=== PATIENT | female | born 1970 | race Caucasian/White ===

== ENCOUNTER → 2020-06-01 11:43 | Outpatient (BNVA) | payer MEDICAID, SELFPAY | PROVIDERS: Visit Provider Nurse Practitioner ==

== ENCOUNTER → 2020-06-27 08:50 | Outpatient (BNVA) | payer MEDICAID, SELFPAY | PROVIDERS: PCP Nurse Practitioner Family; Visit Provider Nurse Practitioner ==

== ENCOUNTER → 2020-08-08 08:56 | Outpatient (BNVA) | payer MEDICAID, SELFPAY | PROVIDERS: PCP Nurse Practitioner Family; Visit Provider Nurse Practitioner ==

== ENCOUNTER → 2020-10-01 11:22 | Outpatient (BNVA) | payer MEDICAID, SELFPAY | PROVIDERS: PCP Nurse Practitioner Family; Visit Provider Nurse Practitioner ==

== ENCOUNTER 2020-11-22 14:40 | Emergency (ER) | payer MEDICAID, SELFPAY ==
[2020-11-22 14:45] VITALS: BP 147/104; PULSE 104; RESP 16; TEMP 36.7; O2SAT 99; BMI 21.5
== END 2020-11-22 16:48 | disposition left against medical advice (07) ==
PROVIDERS: Emergency Provider Emergency Medicine; PCP Nurse Practitioner Family
DX: M79.89 Other specified soft tissue disorders (principal); M79.651 Pain in right thigh
CPT/HCPCS: 99281

== ENCOUNTER 2022-03-09 16:51 | Emergency (ER) | payer MEDICAID, SELFPAY ==
--- NOTE | ~2022-03-09 | XR_ITS ---
EXAMINATION: XR chest 1V CLINICAL INFORMATION: Reason for Exam Chest pain status post chest compressions COMPARISON: Chest radiograph 06/28/2010 TECHNIQUE: One view of the chest FINDINGS: Asymmetric opacification of the right lung apex. No pneumothorax or pleural effusion. Normal cardiomediastinal silhouette. No displaced rib fractures appreciated however ribs were incompletely imaged and radiographs have limited sensitivity for the detection of rib fractures, and therefore if clinical concern CT chest is advised. XR/XR chest 1V Impression: 1. Asymmetric opacification of the right lung apex, could potentially reflect vasculature in the setting of patient rotation however a contrast-enhanced CT chest is recommended to ensure no underlying lesion. 2. No displaced rib fractures appreciated however ribs were incompletely imaged and radiographs have limited sensitivity for the detection of rib fractures, and therefore if clinical concern CT chest is advised.
[2022-03-09 17:01] VITALS: BP 143/93; PULSE 107; PULSE 115; RESP 16; TEMP 36.6; O2SAT 94; O2SAT 95; BMI 21.5
--- NOTE | 2022-03-09 17:05 | ED_ITS ---
HPI - Overdose General Chief Complaint: Overdose Stated Complaint: OD Time Seen by Provider: 03/09/22 16:55 Source: patient and EMS Mode of arrival: EMS Limitations: no limitations History of Present Illness HPI Narrative: 51-year-old female presents via EMS for accidental overdose. Patient was given chest compressions by bystanders, EMS provided bag-mask ventilation and Narcan. Patient is alert and oriented at the time of presentation to the emergency department. complaint: accidental overdose Onset (ago): hour(s) (Within the hour of arrival) Context: Accidental Overdose: wanted to get high Treatments Prior to Arrival: narcan and other (Bag-mask ventilation, chest compressions) Related Data Home Medications Medication Instructions Recorded Confirmed linaclotide 290 mcg capsule 290 mcg PO DAILY 06/27/20 11/01/20 (Linzess) lorazepam 0.5 mg tablet 0.5 mg PO BID PRN Anxiety 06/27/20 11/01/20 trazodone 100 mg tablet 100 mg PO BEDTIME PRN Sleep 06/27/20 11/01/20 Previous Rx's Medication Instructions Recorded cetirizine 10 mg capsule (All Day 10 mg PO DAILY allergy symptoms 30 06/08/20 Allergy (cetirizine)) days #30 caps fluticasone propionate 220 See Rx Instructions .Route BID #12 10/01/20 mcg/actuation HFA aerosol inhaler grams Allergies Allergy/AdvReac Type Severity Reaction Status Date / Time Beef Containing Products Allergy mild Verified 11/01/20 13:12 fish derived Allergy mild Verified 11/01/20 13:12 wheat Allergy Unknown Verified 11/06/20 12:34 eggs Allergy mild Uncoded 11/01/20 13:12 Review of Systems Review of Systems: Constitutional: No Fever, No Chills ENT/Mouth: No Ear Pain, No Hoarseness, No sore throat Eyes: No Eye Pain, No Swelling, No Redness, No Foreign Body Cardiovascular: No Chest Pain, No SOB Respiratory: No Cough, No Dyspnea Gastrointestinal: No Nausea, No Vomiting, No Diarrhea, No abdominal Pain Genitourinary: No Dysuria, No Hematuria Musculoskeletal: positive chest wall pain, No Myalgias, No Joint Swelling Skin: No Skin lacerations, No rash Neuro: No Weakness, No Numbness, No Paresthesias, No Loss of Consciousness, No Dizziness, No Headache Psych: Positive substance abuse, No Anxiety/Panic, No Depression Heme/Lymph: no easy bruising, no Lymphadenopathy Endocrine: No Polyuria, No Polydipsia Yes all other systems are reviewed and are negative [facility] Past Medical History Attestation statement: The following information was validated with the patient. Source: old records reviewed Medical History Anemia Anxiety Dysphagia Eosinophilic esophagitis ETOH abuse History of irritable bowel syndrome Surgical History History of esophagogastroduodenoscopy Hx of colonoscopy [place] teeth extracted Family History Family History Father Colon cancer Mother No problems noted. Social History Social History Household Members: Spouse Alcohol intake: current Alcohol intake frequency: a few times a week Alcohol type: wine Advance Directives: No Advance Directives Information Provided: No Physical Exam Vital Signs: Vital Signs: Last Vital Signs Temp 97.9 F 03/09/22 21:30 Pulse 96 03/09/22 21:30 Resp 16 03/09/22 21:30 BP 139/76 03/09/22 21:30 Pulse Ox 96 03/09/22 21:30 O2 Del Method 03/09/22 21:30 O2 Flow Rate 2 03/09/22 17:11 BMI result Body Mass Index 21.5 Appearance: Alert. Oriented X3. Moderate distress. Disheveled. Eyes: Pupils equal, round and reactive to light. EOMI. Sclera nonicteric. ENT: Pharynx normal. Moist mucous membranes. Neck: Normal inspection. Neck supple. No nuchal rigidity. No vertebral tenderness. CVS: Normal heart rate and rhythm. Apical pulse with the pulses to extremities. Chest wall tenderness to palpation. Respiratory: No respiratory distress. Breath sounds normal. Abdomen: Soft and nontender. No abdominal bruising, rigidity, or rebound tenderness. Skin: Skin warm and dry. Normal skin color. Normal skin turgor. Extremities: No lower extremity edema. Moves all extremities against resistance. Gait not assessed for safety. Neuro: No motor deficit. No sensory deficit. Cranial nerves 2-12 intact. Course Course Course Narrative: 51-year-old female presents via EMS for overdose. Bystanders performed chest compressions, EMS provided bag-mask ventilation and provided Narcan. Once patient received Narcan she was able to maintain O2 saturation in the mid to low 90s. Patient states that she thought she was using cocaine, however it must have been mixed with fentanyl. Patient does not report opioid abuse in the past. States that she has not used cocaine in over 20 years. Does not give me a reason why she used today. She is not interested in detox. She is not forthcoming with information, and answering in short and samreen sentences. Patient is able to follow directions, O2 sats between 88-94%, will continue to monitor with O2 nasal cannula, will order chest x-ray and EKG. 18:25 x-rays indicate an irregular opacity and recommend CT scan for further imaging. I did discuss this finding with the patient, she does not want to agree to this plan until she speaks to her boyfriend on the phone. 20:[address] scan. She is alert oriented x4. Answering questions appropriately. Ambulatory with an even steady gait. Plan of care is to discharge home. Again, respectfully declines detox. Patient verbalized understanding of and agrees for discharge home. MDM - Overdose Differential Diagnosis Differential diagnosis: Likely cocaine intoxication, drug overdose and accidental drug ingestion Medical Records Attestation: I reviewed the patient's medical records. Imaging Data Chest x-ray: Attestation: I personally reviewed and interpreted this imaging study as follows: Radiologist's impression: EXAMINATION: XR chest 1V CLINICAL INFORMATION: Reason for Exam Chest pain status post chest compressions COMPARISON: Chest radiograph? 06/28/2010 TECHNIQUE: One view of the chest FINDINGS: Asymmetric opacification of the right lung apex. No pneumothorax or pleural effusion. Normal cardiomediastinal silhouette. No displaced rib fractures appreciated however ribs were incompletely imaged and radiographs have limited sensitivity for the detection of rib fractures, and therefore if clinical concern CT chest is advised. XR/XR chest 1V Impression: 1.? Asymmetric opacification of the right lung apex, could potentially reflect vasculature in the setting of patient rotation however a contrast-enhanced CT chest is recommended to ensure no underlying lesion. 2.? No displaced rib fractures appreciated however ribs were incompletely imaged and radiographs have limited sensitivity for the detection of rib fractures, and therefore if clinical concern CT chest is advised. ? ECG Data Attestation: I personally reviewed and interpreted this ECG as follows: ECG interpretation date: 03/09/22 ECG interpretation time: 18:14 Prior ECG tracings: not available for review Interpretation: Vent. rate 105 BPM VA interval 150 ms QRS duration 92 ms QT/QTc 376/496 ms P-R-T axes 49 18 40 Sinus tachycardia Possible Left atrial enlargement Cannot rule out Inferior infarct , age undetermined Abnormal ECG No previous ECGs avail Discharge Plan Discharge Clinical Impression: Drug overdose Patient Disposition: Home, Self-Care Instructions: Adult Overdose (ED) Additional Instructions: You were evaluated for overdose. You required chest compressions, bag-mask ventilation and Narcan. Please consider detox Thank you for choosing this emergency department for evaluation. Please follow-up with primary care physician as needed. Return to the emergency department for any new, concerning, or worsening symptoms. Prescriptions: No Action All Day Allergy (cetirizine) 10 mg capsule 10 mg PO DAILY 30 Days Qty: 30 3RF fluticasone propionate 220 mcg/actuation HFA aerosol inhaler See Rx Instructions .ROUTE BID Qty: 12 3RF Rx Instructions: swallowed please spray 2 puffs in mouth and swallow, rinse mouth afterwards. 2 times a day; lorazepam 0.5 mg tablet 0.5 mg PO BID PRN (Reason: Anxiety) trazodone 100 mg tablet 100 mg PO BEDTIME PRN (Reason: Sleep) Linzess 290 mcg capsule 290 mcg PO DAILY Interventions: ED Discharge Assessment Last Done: 03/09/22 21:31 Discharge Date/Time: 03/09/22 21:32
--- NOTE | 2022-03-09 17:10 | ECG_ITS ---
Test Reason : overdose Blood Pressure : / mmHG Vent. Rate : 105 BPM Atrial Rate : 105 BPM P-R Int : 150 ms QRS Dur : 092 ms QT Int : 376 ms P-R-T Axes : 049 018 040 degrees QTc Int : 496 ms Sinus tachycardia Possible Left atrial enlargement RSR' or QR pattern in V1 suggests right ventricular conduction delay Nonspecific T wave abnormality Inferior leads Abnormal ECG No previous ECGs available Referred By: Camille Gibson Electronically Signed By:CAROL LA MD
[2022-03-09 17:11] VITALS: PULSE 103; RESP 16; O2SAT 96
--- NOTE | 2022-03-09 17:34 | MHC.RECOVSUP ---
? Reason for consult Recovery Support o Current location: ED11 o Identified substance use concern: Cocaine - Overdose - Support ? Intervention: o Community resources provided o Harm reduction discussion ? Plan: <del>o</del> <del>Referral</del> <del>to</del> <del>[facility]</del> <del>o</del> <del>Bed</del> <del>search</del> <del>in</del> <del>progress</del> <del>to</del> <del>o</del> <del>Follow</del> <del>up</del> <del>tomorrow</del> <del>o</del> <del>Patient</del> <del>awaiting</del> <del>crisis</del> <del>evaluation</del> <del>o</del> <del>Patient</del> <del>to</del> <del>follow</del> <del>up</del> <del>with</del> <del>[facility]</del> <del>after</del> <del>discharge</del> ? Additional information: Met with Patient and we talk recovery.. Patient stated that She cant right now.. Patient main concern at the moment is there phone
[2022-03-09 21:30] VITALS: BP 139/76; PULSE 96; RESP 16; TEMP 36.6; O2SAT 96
== END 2022-03-09 21:32 | disposition home or self-care (01) ==
PROVIDERS: Emergency Provider Emergency Medicine Emergency Medical Services
DX: T50.901A Poisoning by unspecified drugs, medicaments and biological substances, accidental (unintentional), initial encounter (principal); Y92.9 Unspecified place or not applicable; F19.10 Other psychoactive substance abuse, uncomplicated; R07.89 Other chest pain
CPT/HCPCS: 71045; 93005; 99283; 99284

== ENCOUNTER 2022-05-21 12:52 | Outpatient (REF) | payer MEDICAID, SELFPAY ==
--- NOTE | ~2022-05-21 | MM_ITS ---
EXAMINATION: MM SCREENING DIGITAL BREAST TOMOSYNTHESIS, BILATERAL CLINICAL INFORMATION: Screening. Asymptomatic. The lifetime risk of breast cancer based on the Tyrer-Cuzick Model is 10.7%. COMPARISON: Mammography: December 24, 2017 and studies dating back to August 19, 2013 TECHNIQUE: Digital breast tomosynthesis is performed in both the craniocaudal and mediolateral oblique views along with computer-aided detection (CAD). Synthesized 2D images are generated from the tomosynthesis. FINDINGS: The breasts are heterogeneously dense, which may obscure small masses (ACR BI-RADS breast composition Category c). There are no new significant masses, abnormal calcifications, or other abnormalities. MM/MM tomosynthesis screening BI IMPRESSION: No significant changes ASSESSMENT: BI-RADS 1: Negative RECOMMENDATION: Routine annual mammography screening. This patient's information was entered into a reminder system with a target due date for their next mammogram.
== END 2022-05-21 12:53 | disposition home or self-care (01) ==
LOC: HO.MAMMO 12:52
PROVIDERS: PCP Nurse Practitioner Family; Visit Provider Nurse Practitioner Family
DX: Z12.31 Encounter for screening mammogram for malignant neoplasm of breast (principal)
CPT/HCPCS: 77063; 77067

== ENCOUNTER 2023-08-12 12:00 | Outpatient (AMB) | payer MEDICAID, SELFPAY ==
--- NOTE | 2023-08-12 12:10 | A.OFFVIS_ITS ---
Intake Vital Signs 08/12/23 12:35 Height 5 ft 2 in Weight 110 lb BMI 20.1 BP 97/59 L Blood Pressure Location Lt brachial Position Sitting Pulse 89 Intake Visit Reasons: Dysphagia PT N/S last appt Intake Note: Akua presents to in office visit today in follow up of dysphagia. CC: hemorrhoid with blood, abdominal pain with abdominal bloating, swallowing problems, denies any other GI issues. Steamship Agent Required: No Accompanied by: Family/Other Allergies No Known Drug Allergies Allergy (Unknown, Verified 08/12/23 13:34) Unknown Beef Containing Products Allergy (Verified 08/12/23 13:34) mild fish derived Allergy (Verified 08/12/23 13:34) mild wheat Allergy (Verified 08/12/23 13:34) Unknown eggs Allergy (Uncoded 11/01/20 13:12) mild HPI Dysphagia PT N/S last appt HPI Details Assessment & Plan (1) Eosinophilic esophagitis: Code(s): K20.0 - Eosinophilic esophagitis Plan - [place] SnowdenC: She tells me that she saw the laborer sawmill and she is allergic to multiple food items. This includes wheat, beef, salmon and ?mixed to fish? I have no idea what mixed finishes but I will see if I can find out the laborer sawmill did not note either. She is not allergic to shellfish. She is trying to avoid these but of course it is hard especially the wheat since pasta and bread her fairly ubiquitous in the [place] diet. However she understands that there is nothing much to be done since this is a genetic trait and she is working hard to change her diet and lifestyle. There also was a mention of significant alcohol intake by the laborer sawmill that may be a contributing factor to her esophagitis. She still has intermittent trouble with swallowing even water sometimes will ?get stuck and will come back up.? She had an esophageal dilation with the last EGD and I explained that sometimes we need to dilate again to keep the stricture open. She is slightly disappointed because the last time we dilated she was very uncomfortable and felt like she ?was swallowing broken glass,? for about a week. I think this is because at that time we did not have a good diagnosis and her esophagus was still very irritated. I want to aggressively use the fluticasone inhaler 2 weeks before the procedure to calm everything down her esophagus and I do not think she will have so much discomfort this time since were actively treating the a eosinophilic esophagitis. She still vomits occasionally which she attributes to esophageal stricture more than an actual nausea/vomiting syndrome. She continues to use the Linzess and is moving her bowels well with this. She is agreeable to a follow-up after the procedure and will call me if she needs anything in the meantime. Medications: Refilled: fluticasone propio saurabh 220 mcg/actua tion swallowed please spray 2 puffs in m outh and swallow, rinse mouth afterw ards. 2 times a da y; 12 grams 3RF (2) Dysphagia: Code(s): R13.10 - Dysphagia, unspecified Medications: Refilled: fluticasone propio saurabh 220 mcg/actua tion swallowed please spray 2 puffs in m outh and swallow, rinse mouth afterw ards. 2 times a da y; 12 grams 3RF (3) Family history of colon cancer: Comment: 2018 scope, repeat 5 years 2022 Code(s): Z80.0 - Family history of malignant neoplasm of digestive organs TODAY'S VISIT PATIENT HAS BEEN LOST FOLLOW-UP SINCE 09/2020 This is a 53-year-old female who was booked as a follow-up for dysphagia on my schedule but when I enter the room she has a bit upset saying ?you did not get any paperwork? You really do not know why I am here?? I tell her that I thought she was here for her swallowing again and she stands up and shows me by lifting her close her extremely swollen abdomen and says ?and I am not !? It seems that she was admitted in June at [facility] for sudden decompensation of chronic liver disease. I ask how she got to this point and she tells me ?from drinking alcohol. ? I clearly did not treat her for this and did not even know that she was an alcoholic. However, I do have some access to [facility] medical records and I use these to try to clean information going forward. Apparently she was referred to follow-up with the [facility] medical practitioner but she says ?they never called me. ? She knew she was having trouble for many months when she had an onset of severe fatigue and then she began to have abdominal swelling. At that time she had both a therapeutic and diagnostic paracentesis that did not seem to show any infection or malignant process. At that time they removed 2.9 L of fluid. She was put on a cephalosporin for prevention of spontaneous bacterial peritonitis. However, the fluid rapidly returned within a week of the procedure. She is now extremely uncomfortable and is complaining of pain in her lower belly in her flanks and in her back. She wants a refill of her chronic oxycodone which I declined to do today given the overall risks for relapse in a recently recovered alcoholic when mixed with opiate medications. However, I will try aggressively increasing her diuretics and try to get her in for therapeutic paracentesis at our facility as quickly as I can. Reviewing all of her labs it appears that her MELD score is 22 in she has a fairly good chance of survival within the next 90 days. She has been sober since May of this year. She does not know her medications but we call her pharmacy and appears she is on 50 mg of spironolactone a day along with 40 of Lasix. She does not appear to be on any beta timi. I tell her that unfortunately given the fact I was not appropriately informed about her visit (her primary care provider also did not forward us any information) I will need to hand her off to a physician for very close follow-up especially with the aggressive diuretic therapy. This is especially true because I go on vacation after this week were ordinarily I would follow the patient on a week to week basis or even more than that until we stabilize the presentation. For now we agree that she will start her diuretic therapy today which is Thursday and then return Thursday morning for repeat labs so that I can assess her electrolyte and her renal function. I have been able to get her in with Dr. Morales next Thursday which is likely appropriate given her sudden decompensation and the overall severity of her condition going forward. Before the end of the day and before I close this note I discovered that were able to get her scheduled for paracentesis on Thursday of next week. At this time I am going to increase by double her diuretics putting her on 50 of spironolactone twice a day and 40 of Lasix twice a day to try to get her some relief as she has an extremely tense abdomen. I am also going to start a very low dose of metoprolol 12.5 mg half of a 25 mg tablet short-acting twice a day. I do this in case she does have any orthostatic hypotension from this aggressive therapy we can always cut this down to once a day and stop it more quickly rather than putting her on a long-acting beta timi. We can always revise this going forward. She was educated to be very careful about rising quickly from a sitting position or bending over and standing up. If she has any ill effect she is to contact me immediately. She also was educated about the critical importance of coming back to have her electrolytes rechecked as a potassium imbalance or even a sodium imbalance could cause fatal cardiac abnormalities. I am also going to be ordering an endoscopy to evaluate for her esophageal varices but this of course is not of urgent concern. I have scanned all of the labs and imaging studies obtained from [facility] so that they are part of our record. Of note she does not seem to have an elevated ammonia level. CT scan of the abdomen does show a cirrhotic liver with a possible hyper enhancing focus adjacent to the inferior vena cava that they can not completely to find as a vascular structure. This may need further imaging studies. She also has mild splenomegaly. Return office visit next Thursday as scheduled for physician follow-up. I will check her labs on Thursday and make any decision/adjustments to the aggressive diuretic therapy as needed. Of incidental note she may be due for a repeat screening colonoscopy and we can consider going forward if this should be added to the upper endoscopy. [facility] Medical History (Updated 08/14/23 @ 07:52 by KAYLA Snowden) Anemia History of irritable bowel syndrome Anxiety Dysphagia Eosinophilic esophagitis Surgical History [place] teeth extracted History of esophagogastroduodenoscopy Hx of colonoscopy Family History Father Colon cancer Mother No problems noted. Social History Household Members: Spouse Alcohol intake: current Alcohol intake frequency: a few times a week Alcohol type: wine Review of Systems Const Denies fatigue, Denies fever(s), Denies night sweats, Denies poor appetite and Denies weight loss ENT Reports Normal hearing present, Denies dysphagia, Denies odynophagia, Denies throat swelling and Denies tongue swelling Card Reports no additional complaints Resp Reports no additional complaints GI Details: Reports abdominal pain, Denies melena, Denies bloating, Denies hematochezia, Denies constipation, Denies GI cramping, Denies dysphagia, Denies excessive flatus, Denies early satiety, Denies heartburn, Denies diarrhea, Denies nausea, Denies odynophagia, Denies vomiting, Denies hematemesis and Reports other (Marked in severe ascites) Skin/Breast Denies pruritus, Denies lesions, Denies rash and Denies jaundice Neuro Reports Normal hearing present and Denies Abnormal speech present Psych Reports anxiety Endo Denies fatigue Aller/Immun Denies throat swelling and Denies tongue swelling Physical Exam Vital Signs: Last Vital Signs Pulse 89 08/12/23 12:35 BP 97/59 L 08/12/23 12:35 BMI result Body Mass Index 20.1 Const General: cooperative, no acute distress, well developed and well groomed Nutritional Appearance: average body habitus and well nourished Orientation/consciousness: oriented to person, oriented to place and oriented to time Limitations: No language barrier HEENT Head: Yes normocephalic and Yes atraumatic Eyes General: appearance normal, both eyes and all related structures Pupils: Equal, round and reactive pupils present Neck Thyroid: Thyroid normal Resp Effort & Inspection: normal respiratory effort and able to speak in complete sentences Auscultation: clear to auscultation bilaterally Cardio Rate: regular rate Rhythm: regular rhythm Heart sounds: Normal, physiologic split S2 sound present Peripheral pulses: radial pulses present and posterior tibial pulses present GI Inspection: Yes distended and No Abdominal panniculus present Palpation (GI): Firmness to palpation present (GI) (entire abd), nontender, no guarding, not rigid and Hepatosplenomegaly present (Noted on imaging unable to palpate abdomen due to severe ascites) Percussion: Yes bilateral flank dullness Auscultation: normal bowel sounds Rectal Exam - Female: deferred Skin General skin exam: no rashes or lesions noted, turgor normal, skin not dry, no jaundice, No spider nevi and no striae Rashes: no rashes Nails: normal Neuro General: oriented to person, oriented to place and oriented to time Cranial nerves: Yes Equal, round and reactive pupils present and Yes Normal hearing present Speech: No Abnormal speech present Extrem General: Yes normal to inspection, No clubbing, No cyanosis and No edema Psych Appearance: grossly normal and well kempt Mental Status: mental status grossly normal Speech and movement: Normal speech and movement present Affect: normal affect Attitude: cooperative Thought process: Circumstantial thought process present and not confabulating Thought content: Normal thought content present Insight: Limited insight present (Psych) Judgement: Limited judgement present (Psych) Results Reviewed Results Reviewed: Records were reviewed from her [facility] hospitalization including extensive labs, and imaging. Assessment & Plan Assessment & Plan (1) Decompensation of cirrhosis of liver: Code(s): K72.90 - Hepatic failure, unspecified without coma; K74.60 - Unspecified cirrhosis of liver (2) Ascites: Code(s): R18.8 - Other ascites (3) ETOH abuse: Comment: Per patient report she has been sober since May of 2023 Code(s): F10.10 - Alcohol abuse, uncomplicated (4) Portal hypertension: Code(s): K76.6 - Portal hypertension (5) Family history of colon cancer: Comment: 2018 scope, repeat 5 years 2022 Code(s): Z80.0 - Family history of malignant neoplasm of digestive organs (6) Liver lesion: Code(s): K76.9 - Liver disease, unspecified Plan PATIENT HAS BEEN LOST FOLLOW-UP SINCE 09/2020 This is a 53-year-old female who was booked as a follow-up for dysphagia on my schedule but when I enter the room she has a bit upset saying ?you did not get any paperwork? You really do not know why I am here?? I tell her that I thought she was here for her swallowing again and she stands up and shows me by lifting her close her extremely swollen abdomen and says ?and I am not !? It seems that she was admitted in June at [facility] for sudden decompensation of chronic liver disease. I ask how she got to this point and she tells me ?from drinking alcohol. ? I clearly did not treat her for this and did not even know that she was an alcoholic. However, I do have some access to [facility] medical records and I use these to try to clean information going forward. Apparently she was referred to follow-up with the [facility] medical practitioner but she says ?they never called me. ? She knew she was having trouble for many months when she had an onset of severe fatigue and then she began to have abdominal swelling. At that time she had both a therapeutic and diagnostic paracentesis that did not seem to show any infection or malignant process. At that time they removed 2.9 L of fluid. She was put on a cephalosporin for prevention of spontaneous bacterial peritonitis. However, the fluid rapidly returned within a week of the procedure. She is now extremely uncomfortable and is complaining of pain in her lower belly in her flanks and in her back. She wants a refill of her chronic oxycodone which I declined to do today given the overall risks for relapse in a recently recovered alcoholic when mixed with opiate medications. However, I will try aggressively increasing her diuretics and try to get her in for therapeutic paracentesis at our facility as quickly as I can. Reviewing all of her labs it appears that her MELD score is 22 in she has a fairly good chance of survival within the next 90 days. She has been sober since May of this year. She does not know her medications but we call her pharmacy and appears she is on 50 mg of spironolactone a day along with 40 of La six. She does not appear to be on any beta timi. I tell her that unfortunately given the fact I was not appropriately informed about her visit (her primary care provider also did not forward us any information) I will need to hand her off to a physician for very close follow-up especially with the aggressive diuretic therapy. This is especially true because I go on vacation after this week were ordinarily I would follow the patient on a week to week basis or even more than that until we stabilize the presentation. For now we agree that she will start her diuretic therapy today which is Thursday and then return Thursday morning for repeat labs so that I can assess her electrolyte and her renal function. I have been able to get her in with Dr. Morales next Thursday which is likely appropriate given her sudden decompensation and the overall severity of her condition going forward. Before the end of the day and before I close this note I discovered that were able to get her scheduled for paracentesis on Thursday of next week. At this time I am going to increase by double her diuretics putting her on 50 of spironolactone twice a day and 40 of Lasix twice a day to try to get her some relief as she has an extremely tense abdomen. I am also going to start a very low dose of metoprolol 12.5 mg half of a 25 mg tablet short-acting twice a day. I do this in case she does have any orthostatic hypotension from this aggressive therapy we can always cut this down to once a day and stop it more quickly rather than putting her on a long-acting beta timi. We can always revise this going forward. She was educated to be very careful about rising quickly from a sitting position or bending over and standing up. If she has any ill effect she is to contact me immediately. She also was educated about the critical importance of coming back to have her electrolytes rechecked as a potassium imbalance or even a sodium imbalance could cause fatal cardiac abnormalities. I am also going to be ordering an endoscopy to evaluate for her esophageal varices but this of course is not of urgent concern. I have scanned all of the labs and imaging studies obtained from [facility] so that they are part of our record. Of note she does not seem to have an elevated ammonia level. CT scan of the abdomen does show a cirrhotic liver with a possible hyper enhancing focus adjacent to the inferior vena cava that they can not completely to find as a vascular structure. This may need further imaging studies. She also has mild splenomegaly. Return office visit next Thursday as scheduled for physician follow-up. I will check her labs on Thursday and make any decision/adjustments to the aggressive diuretic therapy as needed. Of incidental note she may be due for a repeat screening colonoscopy and we can consider going forward if this should be added to the upper endoscopy. Orders: Orders US paracentesis abd w/image 08/12/23 K74.60 - Unspecified cirrhosis of liver, R18.8 - Other ascites Gamma Glutamyl Transpeptidase 08/12/23 K74.60 - Unspecified cirrhosis of liver, R18.8 - Other ascites Creatinine Today K74.60 - Unspecified cirrhosis of liver, K76.6 - Portal hypertension, R18.8 - Other ascites Alpha Fetoprotein 08/12/23 F10.10 - Alcohol abuse, uncomplicated, K74.60 - Unspecified cirrhosis of liver, R18.8 - Other ascites Phosphatidylethanol, Blood 08/12/23 K74.60 - Unspecified cirrhosis of liver, R18.8 - Other ascites Smooth Muscle Antibody 08/12/23 K74.60 - Unspecified cirrhosis of liver, R18.8 - Other ascites Mitochondrial Antibody 08/12/23 K74.60 - Unspecified cirrhosis of liver, R18.8 - Other ascites EGD with Segal - GI Use Only 08/12/23 K74.60 - Unspecified cirrhosis of liver, R18.8 - Other ascites Bilirubin Direct Today K74.60 - Unspecified cirrhosis of liver, K76.6 - Portal hypertension, R18.8 - Other ascites Electrolytes Today K74.60 - Unspecified cirrhosis of liver, K76.6 - Portal hypertension, R18.8 - Other ascites Medications: New metoprolol tartrate 12.5 mg (1/2 x 25 mg) PO BID 30 tabs 3RF F10.10 - Alcohol abuse, uncomplicated, K74.60 - Unspecified cirrhosis of liver, K76.6 - Portal hy pertension furosemide 40 mg PO BID 60 tabs 6RF K74.60 - Unspecified cirrhosis of liver, K76.6 - Portal hypertension, R18.8 - Other ascites Patient Instructions: [employer] 1.? Change the spironolactone to 25mg 2 tabs twice (for a total fo 50mg twice a day). 2.? Change the furosemide to 40mg twice a day 3.? Start the metoprolol 25mg and take ? tablet twice a day 4.? Come on Thursday for labs so that I can make sure the water pills are not too strong 5.? You will see Dr. Morales next Friday 08/18 6.? I am working on getting the paracentesis as soon as possible but it may take a couple of days. Good luck, you may come and see me but in the short term Dr. Morales will likely manage you. Coding Level of Care Code Est Pt Level 4 (13577) Diagnoses Decompensation of cirrhosis of liver K72.90; K74.60 Ascites R18.8 ETOH abuse F10.10 Portal hypertension K76.6 Family history of colon cancer Z80.0 Liver lesion K76.9 Time Spent (min) 45
[2023-08-12 12:35] VITALS: BP 97/59; PULSE 89; BMI 20.1
== END 2023-08-12 14:32 | disposition home or self-care (01) ==
PROVIDERS: PCP Nurse Practitioner Family; Visit Provider Nurse Practitioner
DX: K72.90 Hepatic failure, unspecified without coma (principal); K74.60 Unspecified cirrhosis of liver; R18.8 Other ascites; F10.10 Alcohol abuse, uncomplicated; K76.6 Portal hypertension; Z80.0 Family history of malignant neoplasm of digestive organs; K76.9 Liver disease, unspecified
CPT/HCPCS: 99214

== ENCOUNTER → 2023-08-12 12:00 | Outpatient (BNVA) | payer MEDICAID, SELFPAY | PROVIDERS: PCP Nurse Practitioner Family; Visit Provider Nurse Practitioner | DX: K20.0 Eosinophilic esophagitis (principal); R13.10 Dysphagia, unspecified; K72.90 Hepatic failure, unspecified without coma; K74.60 Unspecified cirrhosis of liver; R18.8 Other ascites; F10.10 Alcohol abuse, uncomplicated; K76.6 Portal hypertension; K76.9 Liver disease, unspecified; Z80.0 Family history of malignant neoplasm of digestive organs | CPT/HCPCS: 99212 ==

== ENCOUNTER 2023-08-17 11:36 | Day surgery (SDC) | payer MEDICAID, SELFPAY ==
--- NOTE | ~2023-08-17 | US_ITS ---
Ultrasound paracentesis History: Ascites. Risks and benefits and possible complications were discussed with the patient and consent form was signed. A safe pocket of ascitic fluid was identified using ultrasound guidance, and the overlying skin was marked. The abdomen prepped and draped in sterile fashion. 1% lidocaine was used as a local anesthetic. Using ultrasound guidance, a 5 fr catheter was placed into the ascitic pocket. 4.9 liters of yellow fluid was removed passively. The catheter was then removed. A few in home sales representative images from before and after the examination were obtained. The procedure was performed by Humberto Araujo PA-C and supervised by Dr. Prakash. US/US paracentesis abd w/image Impression: Ultrasound-guided paracentesis as described above. No immediate complications
[2023-08-17 12:03] LABS: MANUAL DIFF FLAG NO
[2023-08-17 12:09] LABS: Basophils Percent Auto 0.4 % (0-2); Eosinophils Absolute Auto 0.2 X10*3/uL (0.0-0.4); Eosinophils Percent Auto 2.7 % (0-4); Hematocrit 27.2 % (37.0-47.0); Hemoglobin 9.2 g/dl (12.0-16.0); Imm Gran Abs Auto 0.03 X10*3/uL (0.00-0.03); Imm Gran Pct Auto 0.4 % (0.0-0.4); Lymphocytes Absolute Auto 1.4 X10*3/uL (1.2-4.9); Lymphocytes Percent Auto 20.8 % (20-40); Mean Corpuscular HGB Conc 33.8 g/dl (31.0-35.0); Mean Corpuscular Hemoglobin 34.3 pg (27.0-33.0); Mean Corpuscular Volume 101.5 fL (80.0-98.0); Mean Platelet Volume 8.9 fL (9.4-12.3); Monocytes Absolute Auto 0.6 X10*3/uL (0.1-1.2); Monocytes Percent Auto 9.2 % (2-11); Neutrophils Absolute Auto 4.5 x10*3/uL (2.0-8.3); Neutrophils Percent Auto 66.5 % (45-73); Platelet Count 121 X10*3/uL (160-400); Red Blood Count 2.68 X10*6/uL (4.20-5.50); Red Cell Distribution Width 15.9 % (11.0-16.0); White Blood Count 6.8 X10*3/uL (4.8-10.8)
[2023-08-17 12:15] LABS: INTERNATIONAL NORM RATIO 1.9 (0.9-1.1); Prothrombin Time 22.8 SEC (11.1-13.3)
[2023-08-17 12:17] LABS: Partial Thromboplastin Time 39.2 SEC (26.0-36.8)
[2023-08-17] MEDS: Lidocaine HCl 1 % MPF 5 ML VIAL SUBCUT (13:59)
[2023-08-17 14:00] VITALS: BP 113/77; PULSE 89; RESP 16; TEMP 36.9; O2SAT 98
[2023-08-17 14:15] VITALS: BP 115/79; PULSE 85; RESP 15; TEMP 36.9; O2SAT 98
--- NOTE | 2023-08-17 15:24 | PC.NURSE ---
Patient states she had left lower abd pain. PA made aware and came to bedside to assess patient. DEEPAK Araujo clears patient for dicahrge at bedside and via tiger text. Patient notified to have labs drawn on outpatient basis today per Anjana Woodward. Patient states she does not want to have labs drawn and will not do it. Anjana Woodward made aware.
== END 2023-08-17 15:26 | disposition home or self-care (01) ==
PROVIDERS: Physician Assistant Surgical; PCP Nurse Practitioner Family; Visit Provider Nurse Practitioner
DX: R18.8 Other ascites (principal); K74.60 Unspecified cirrhosis of liver; K76.6 Portal hypertension; K72.90 Hepatic failure, unspecified without coma; K20.0 Eosinophilic esophagitis; R13.10 Dysphagia, unspecified; D64.9 Anemia, unspecified; F10.10 Alcohol abuse, uncomplicated
CPT/HCPCS: 36415; 49083; 85025; 85610; 85730

== ENCOUNTER → 2023-08-17 12:49 | Outpatient (BNV) | payer MEDICAID, SELFPAY | PROVIDERS: PCP Nurse Practitioner Family; Visit Provider Physician Assistant Surgical | DX: R18.8 Other ascites (principal) | CPT/HCPCS: 49083 ==

== ENCOUNTER 2023-08-19 13:02 | Outpatient (REF) | payer MEDICAID, SELFPAY ==
[2023-08-19 14:04] LABS: Hematocrit 25.6 % (37.0-47.0); Hemoglobin 8.7 g/dl (12.0-16.0); Mean Corpuscular Hemoglobin 34.1 pg (27.0-33.0); Mean Corpuscular Volume 100.4 fL (80.0-98.0); Mean Platelet Volume 9.3 fL (9.4-12.3); Platelet Count 120 X10*3/uL (160-400); Red Blood Count 2.55 X10*6/uL (4.20-5.50); Red Cell Distribution Width 15.7 % (11.0-16.0); White Blood Count 5.8 X10*3/uL (4.8-10.8)
[2023-08-19 14:11] LABS: Estimated Average Glucose 85 mg/dL; Hemoglobin A1c % 4.6 % (<6.0)
[2023-08-19 14:54] LABS: Alanine Aminotransferase 12 U/L (0-31); Albumin Level 2.5 g/dL (3.5-5.0); Alkaline Phosphatase 153 U/L (39-117); Anion Gap 11 (12-20); Aspartate Amino Transferase 55 U/L (5-31); Bilirubin Direct 1.6 mg/dL (0.0-0.5); Bilirubin Total 3.1 mg/dL (0.0-1.0); Carbon Dioxide 23 mmol/L (22-29); Chloride 106 mmol/L (96-108); Cholesterol 178 mg/dL (<200); Estimated Glomerular Filt Rate > 60; Gamma Glutamyl Transpeptidase 197 U/L (7-33); HDL Cholesterol 23 mg/dL (>40); LDL Cholesterol Calculated 131 mg/dL (<100); Sodium 136 mmol/L (135-145); Total Protein 6.3 g/dL (6.5-8.0); Triglycerides 120 mg/dL (<150)
[2023-08-20 22:57] LABS: Alpha Fetoprotein 7.3 ng/mL
[2023-08-21 13:38] LABS: Mitochondrial Antibodies NEGATIVE (NEGATIVE)
[2023-08-25 09:50] LABS: Smooth Muscle Antibody <20 U (<20)
[2023-08-26 11:36] LABS: Phosphatidylethanol 16:0-18:1 NEGATIVE; Phosphatidylethanol 16:0-18:2 NEGATIVE
== END 2023-08-19 13:03 | disposition home or self-care (01) ==
LOC: HO.LAB 13:02
PROVIDERS: Internal Medicine; Absent Provider Student in an Organized Health Care Education/Training Program; PCP Student in an Organized Health Care Education/Training Program; Visit Provider Nurse Practitioner
DX: K72.90 Hepatic failure, unspecified without coma (principal); K74.60 Unspecified cirrhosis of liver; K76.9 Liver disease, unspecified; R18.8 Other ascites; K76.6 Portal hypertension; F10.10 Alcohol abuse, uncomplicated; K20.0 Eosinophilic esophagitis; Z80.0 Family history of malignant neoplasm of digestive organs
CPT/HCPCS: 36415; 80051; 80061; 80076; 80321; 82105; 82565; 82977; 83036; 85027; 85610; 86015; 86381; 99212

== ENCOUNTER 2023-08-19 15:27 | Outpatient (AMB) | payer MEDICAID, SELFPAY ==
--- NOTE | 2023-08-19 15:37 | A.OFFVIS_ITS ---
Intake Vital Signs 08/19/23 15:41 Height 5 ft 2.5 in Weight 101 lb 6.602 oz BMI 18.3 BP 94/59 L Blood Pressure Location Lt brachial Position Sitting Pulse 82 Intake Visit Reasons: Follow up/ Anjana Woodward pt Intake Note: Akua presents in the office as a follow up to seeing August. CC: She seen August and she states that she had to stop lactulose - she would not make it to the [place] if she takes it . Pains in her stomach and in her rectum. She has pains in her rib area as well. 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 Patient has longstanding history of alcohol use disorder, quit drinking in May 2023. She had an admission last month to [facility] for worsening ascites that was consistent with high sag low total protein, that is from cirrhosis. No SBP. She was discharged on spironolactone 50 mg once daily and Lasix 40 mg once daily. Of note, patient had a CT abdomen pelvis with IV contrast that showed a 1 cm enhancing lesion in segment 8 adjacent to IVC. MRI liver protocol was recommended. Pt initially saw Anjana Woodward for follow up but due to new diagnosis of decompensated cirrhosis since May 2023. Had been drinking a bottle of wine x 10 years. Has been to detox a few times most recently around 3 years however would relapse within a few days. However this time has been sober since May 2023 primarily due to feeling awful. Has diffuse weakness and body pains. Has been losing weight despite having a robust appetite. Current meds: Spironolactone 50/day Furosemide 40/day Lactulose -- Rxed but does not take Trazodone 100 Ativan 0.5 TID daily Of note, patient also carries a history of eosinophilic esophagitis diagnosed on EGD 2018. She was on modified elimination diet at 1 point, but has not been on any dietary restriction or medications lately. Also does not report any significant symptoms. Continues on PPI. Also has family history of colon cancer in father, diagnosed in his 60s. She is supposed to be on Q5 yearly colonoscopy plan. [facility] Medical History (Updated 08/14/23 @ 07:52 by KAYLA Snowden) Anemia History of irritable bowel syndrome Anxiety Dysphagia Eosinophilic esophagitis Surgical History (Updated 08/17/23 @ 12:20 by Cristina Canales) History of abdominal paracentesis [place] teeth extracted History of esophagogastroduodenoscopy Hx of colonoscopy Family History Father Colon cancer Mother No problems noted. Social History Household Members: Spouse Alcohol intake: current Alcohol intake frequency: a few times a week Alcohol type: wine Review of Systems Const All systems reviewed & are unremarkable except as noted in HPI and below Physical Exam Vital Signs: Last Vital Signs Pulse 82 08/19/23 15:41 BP 94/59 L 08/19/23 15:41 BMI result Body Mass Index 18.3 No acute distress Nonicteric Severe bitemporal wasting Abdomen soft, distended, tender No overt respiratory distress No peripheral edema Assessment & Plan Assessment & Plan (1) Decompensation of cirrhosis of liver: Code(s): K72.90 - Hepatic failure, unspecified without coma; K74.60 - Unspecified cirrhosis of liver (2) Liver lesion: Code(s): K76.9 - Liver disease, unspecified (3) Ascites: Code(s): R18.8 - Other ascites (4) Portal hypertension: Code(s): K76.6 - Portal hypertension (5) Family history of colon cancer: Comment: 2018 scope, repeat 5 years 2022 Code(s): Z80.0 - Family history of malignant neoplasm of digestive organs (6) Eosinophilic esophagitis: Code(s): K20.0 - Eosinophilic esophagitis Plan Discussed with the patient, that based on workup so far performed at [facility], and clinical assessment, appears to have decompensated cirrhosis secondary to alcohol use disorder. Most of the visit was spent reviewing pathophysiology of cirrhosis, and natural progression in the absence of control of underlying etiology. She was congratulated on sobriety since May 2023. She is due for follow-up MRI for the hepatic lesion, as well as EGD for variceal screening. The EGD can be performed at the same time as the colonoscopy, as she is due for anyway, and additionally has anemia. Reviewed that true assessment of underlying liver function is to be reassessed after 6 months of sobriety. Plan: -meld labs pending (patient got blood work done just before today's appointment) -no evidence of overt hepatic encephalopathy on exam today. Reviewed indication for lactulose and encouraged compliance -has moderate ascites on exam. Increase spironolactone to 100 mg once daily. Continue furosemide 40 mg once daily. -check BMP, urine sodium and potassium in 2 weeks -MRI liver protocol already ordered -EGD and colonoscopy to be booked as above. Patient requests Suprep, which was sent to her pharmacy and instructions reviewed. -follow-up in 2 weeks Orders: Orders Basic Metabolic Panel 2 Weeks R18.8 - Other ascites Sodium Urine Random 2 Weeks R18.8 - Other ascites Potassium Urine Random 2 Weeks R18.8 - Other ascites Medications: New peg 3350-electrolytes 236-22.74-6.74 -5.86 gram (Golytely) as per split prep instructions, until fecal effluent is clear 240 mL PO Q10M 4,000 mL 0RF colonoscopy sodium,potassium,mag sulfates 17.5-3.13-1.6 gram (Suprep Bowel Prep Kit) DILUTE; drink full amount early evening before AND next morning at least 2 hr before procedure; follow w 960 mL water PO 354 mL 0RF Changed From furosemide 40 mg PO BID 60 tabs 6RF K74.60 - Unspecified cirrhosis of liver, K76.6 - Portal hypertension, R18.8 - Other ascites To furosemide 40 mg PO DAILY 90 tabs 0RF 90 days K74.60 - Unspecified cirrhosis of liver, K76.6 - Portal hypertension, R18.8 - Other ascites From spironolactone 50 mg PO BID To spironolactone 100 mg PO DAILY 90 tabs 0RF 90 days Coding Level of Care Code Est Pt Level 5 (50960) Diagnoses Decompensation of cirrhosis of liver K72.90; K74.60 Liver lesion K76.9 Ascites R18.8 Portal hypertension K76.6 Family history of colon cancer Z80.0 Eosinophilic esophagitis K20.0
[2023-08-19 15:41] VITALS: BP 94/59; PULSE 82; BMI 18.3
== END 2023-08-19 16:29 | disposition home or self-care (01) ==
PROVIDERS: PCP Nurse Practitioner Family; Visit Provider Internal Medicine
DX: K72.90 Hepatic failure, unspecified without coma (principal); K74.60 Unspecified cirrhosis of liver; R18.8 Other ascites; K76.6 Portal hypertension; Z80.0 Family history of malignant neoplasm of digestive organs; K20.0 Eosinophilic esophagitis
CPT/HCPCS: 99214